=== PATIENT | male | born 2000 | race Caucasian/White ===

== ENCOUNTER 2018-04-01 23:03 | Emergency (ER) | payer BC ==
[~2018-04-01 23:03] MED LIST: Iopamidol 370 76% 100 ML VIAL ONE
[2018-04-02] MEDS ORDERED: Lidocaine 1% w/Epinephrine 1:100K 20 ML VIAL ONE (01:27)
[2018-04-02 01:29] LABS: #Eosinphils 0.1 thou/uL (0.0-0.7); #Monocytes 1.3 thou/uL (0.11-0.59); #Neutrophils 8.3 thou/uL (1.40-6.50); %Basophils 0.2 % (0.0-1.0); %Eosinophils 1.1 % (0.0-10.0); %Lymphocytes 23.3 % (28.0-48.0); %Monocytes 10.5 % (0.0-4.0); Hemoglobin 13.2 g/dL (14.0-18.0); Mean Corpuscular HGB CONC 33.5 g/dL (32.0-36.0); Mean Corpuscular Hemoglobin 30.3 pg (25.0-35.0); Mean Corpuscular Volume 90.3 fL (78.0-98.0); Mean Platelet Volume 6.9 fL (7.4-10.4); Platelet Count 340 thou/uL (130-400); RBC Distribution Width 10.9 % (11.5-14.5); Red Blood Cell (RBC) Count 4.38 mill/uL (4.00-5.20); White Blood Cell (WBC) Count 12.7 thou/uL (4.8-10.8)
[2018-04-02 01:39] LABS: Bilirubin Negative (Negative); Blood, Urine Negative (Negative); Clarity CLEAR (Clear); Glucose, Urine (Dipstick) Negative (Negative); Leukocyte Negative (Negative); Nitrite Negative (Negative); Protein, Urine (Dipstick) Negative (Neg-Trace)
[2018-04-02 01:45] LABS: Specific Gravity, Urine 1.059 (1.002-1.036)
[2018-04-02 01:47] LABS: ALT (SGPT) 14 U/L (8-55); AST (SGOT) 14 U/L (5-34); Albumin 4.2 g/dL (3.5-5.0); Alkaline Phosphatase 66 U/L (Less than 750); Anion Gap 15 mmol/L (10-20); BUN (Urea Nitrogen) 15 mg/dL (8.9-20.6); Bilirubin, Total 0.2 mg/dL (0.2-1.2); Calc. Creatinine Clearance 0 mL/min (70-130); Calcium 9.7 mg/dL (7.8-10.44); Carbon Dioxide 25 mmol/L (22-29); Chloride 103 mmol/L (98-107); Estimated GFR-MDRD 70; Glucose 107 mg/dL (70-105); Potassium 3.9 mmol/L (3.5-5.1); Protein, Total 7.2 g/dL (6.0-8.3); Sodium 139 mmol/L (136-145)
[2018-04-02] MEDS ORDERED: HYDROcodone/Acetaminophen 5/325 mg Tablet ONE (02:28)
--- NOTE | 2018-04-02 07:46 | CT ---
CT LIMITED ABDOMEN WITH CONTRAST CT PELVIS TO INCLUDE THE MID THIGHS WITH CONTRAST: CLINICAL HISTORY: Evaluation of perianal abscess. FINDINGS: There is prominent soft tissue edema and inflammation about the perianal region. There is edema of t he imaged scrotum. No soft tissue gas is seen. Pelvic cavity reveals no obvious acute process, alth ough the bowel is limited in assessment without the presence of enteric contrast. There is a noninfl lupe fat-containing periumbilical hernia. The imaged low abdomen reveals no acute process. There is moderate retained fecal material of the colon. Regional skeletal structures reveal no acute destruc tive lesion. There is mildly prominent adenopathy seen at each inguinal region. IMPRESSION: 1. Prominent perianal soft tissue inflammation with edema of the adjacent scrotum as well. No well- formed focal fluid collection to indicate a percutaneously drainable abscess. There is no soft tissu e emphysema visualized. 2. There is mild prominence of bilateral inguinal chain lymph nodes, which likely relates to reactiv e adenopathy. POS: [facility]
== END 2018-04-02 03:13 | disposition home or self-care (01) ==
LOC: ERS 23:03
DX: L02.215 Cutaneous abscess of perineum (principal); F17.290 Nicotine dependence, other tobacco product, uncomplicated
CPT/HCPCS: 36415; 46040; 72193; 80053; 81003; 85025; 87070; 87077; 87086; 87186; 87205; J2001; Q9967